=== PATIENT | male | born 1975 | race Caucasian/White ===

== ENCOUNTER 2024-12-08 11:24 | Outpatient (AMB) | payer BC, SELFPAY ==
--- NOTE | 2024-12-08 11:27 | A.OFFPC_ITS ---
Vital Signs 12/08/24 11:33 12/08/24 12:16 Height 5 ft 10 in Weight 229 lb 6 oz BMI 32.9 BP 180/93 H 160/84 H Blood Pressure Location Rt brachial Rt brachial Position Sitting Sitting Respiration 16 Pulse 87 Pulse Source Pulse Oximeter Temp 97.6 F Temp Source Oral Pulse Oximetry (%) 100 Oxygen Delivery Method Room Air Intake Visit Reasons: CPE? (need to change pcp) Intake Note: patient here for new patient visit/ CPE [employer] Required: No Allergies Penicillins Allergy (Intermediate, Verified 12/08/24 12:01) Rash Medication List - [facility] Known Home Meds Tobacco use date assessed: 12/08/24 Dental Screening Dental Screen Date: 12/08/24 Did you have a dental visit in the last 12 months?: Yes Did you have a dental problem in the last 6 months where you did not have access to dental care?: No Was dental information given to patient?: Patient has dentist HPI HPI Comments History of Present Illness Details Félix 49 y/o M with former smoker, current zakia otine vaper, HLD, elevated IOP , fhx co hawa ca (dad) s/p knee surgery R Fhx: Mom htn hld, dad htn hld colon ca (81) Social with children; works in the alcohol industry Health Maintenance Carlos has never had one, referred to GI at [facility] PSA Tdap 2022 Flu 12/08/24 Specialists GI Optho glasses/contacts, last exam June 2024 Suki has appt in 6 mo for elevated IOP in one eye History of Present Illness The patient is a 49-year-old male presenting to [facility]. [place] - records rec'd and reviewed, no consistent medical care in about 10 years Obesity: - BMI: 32.9 Former Tobacco Use Disorder: - Quit smoking 25 years ago. - Current nicotine vape usage. Hyperlipidemia: - No medication currently taken. - Maternal family history. Elevated Intraocular Pressure: - History of elevated pressure in eye. Family History of Hypertension: - Maternal family noted. Family History of Colorectal Cancer: - Father's positive history, diagnosed a t age 81. Lesion on Back: - Present, reportedly increasing in size . Elevated BP w/o DX - Blood pressure noted at 162/84 on repe at; Denies complaints. Admits white coat. Review of Systems - Eyes: Reports elevated intraocular pre ssure, otherwise denies current visual disturbances. - Cardiovascular: Denies chest pain; rep orts elevated blood pressure. - Dermatological: Reports lesion on back ; denies any acute changes. - Gastrointestinal: Denies any current g astrointestinal issues; family history noted. - Respiratory: Denies respiratory sympto ms. - Neurological: Denies headaches or dizz iness. - Musculoskeletal: Reports no issues. Physical Exam General: Well developed, well nourished, in no acute distress. Appears stated age. Head: Normocephalic, atraumatic. Eyes: Pupils are equal, round and reactive to light and accommodation. Conjunctivae are clear. Vision grossly normal. Lungs: Clear to auscultation bilaterally. No rales, rhonchi or wheeze noted. Good air flow in all muñoz. Heart: Regular rate and rhythm. No murmurs, click, rubs or gallops are noted. Musculoskeletal: Joints are nontender, without swelling, redness, or effusions. Pulses: Peripheral pulses are equal and palpable bilaterally. Extremities: No clubbing, cyanosis nor edema is noted. Skin: 2 raised brown moles to back Psych: Mood and affect appropriate. Patient reports feeling anxious during visits. Results Pending Discussion Notes The patient and I discussed his history of obesity, former tobacco use, hyperlipidemia, family history of cancer and hypertension, and other relevant health issues. For hypertension, I discussed the need for close monitoring and potential interventions to manage his blood pressure effectively. The patient is aware of his elevated intraocular pressure, and we will continue regular ophthalmic check-ups. I noted the concern with the back lesion and emphasized the importance of dermatologic follow-up. We explored the options for colorectal cancer screening, including both Cologuard and colonoscopy. Changes in lifestyle and dietary habits were stressed due to family history and personal health. We agreed to initiate several referrals and screenings, and the patient consented to a flu shot today. Patient was given time to ask questions. All questions were answered to their satisfaction. Assessment and Plan 1. Obesity - Lifestyle and diet counseling. 2. Former Tobacco Use Disorder - Advise on vaping cessation. 3. Hyperlipidemia - Order lipid panel. 4. Flu vaccine admin 5. Elevated Intraocular Pressure - Monitor with regular exams. 6. Family History of Colorectal Cancer - Colonoscopy arranged. 7 Lesion on Back - Assess by dermatology. 8. Elevated BP - Blood pressure monitoring. Patient Instructions - Follow a low-calorie diet and exercise regularly. - Avoid using nicotine products; conside r cessation aids if needed. - Contact cooker cleaner for follow-up about intraocular pressure. - See a special services supervisor about the lesion o n your back. - Schedule and attend the colonoscopy. - Return for a blood pressure check in t weeks. - Get the flu shot before leaving today. Consent Patient was informed and verbally consented to the use of an ambient scribe for clinic note documentation during this visit. Total time spent caring for the patient today was 45 minutes. This includes time spent before the visit reviewing the chart, time spent during the visit, and time spent after the visit on documentation, reviewing laboratory results, diagnostic imaging, medications, performing a medically necessary evaluation, counseling on diagnoses, care coordination, ordering appropriate tests, ordering appropriate medications, review of tests performed by other providers, reporting test results with the patient, communication with other healthcare providers. PFSH Medical History (Updated 12/08/24 @ 12:27 by Shannon Gonzalez [facility]) Eczema Surgical History (Updated 12/08/24 @ 11:41 by LISA Kate) History of right knee surgery Family History (Updated 12/08/24 @ 11:39 by LISA Kate) Brother FH: mental illness Mother High blood pressure High cholesterol Father High blood pressure High cholesterol Colon cancer Social History (Updated 12/08/24 @ 11:32 by LISA Kate) Housing: House Patient Tobacco Use Status: Never used Tobacco e-Cigarette/Vaping Use: Currently Using Second Hand Smoke Exposure: Yes Use of substances other than those prescribed or required for medical reasons: No service: No Current occupational status: employed Current occupation: alcohol fleet sales associate Current occupational exposures/hazards: No Cognitive needs: No Hearing needs: No Vision needs: Yes Questionnaire PHQ-9 Over the last 2 weeks, how often have you been bothered by any of the following problems? 1. Little interest or pleasure in doing things: not at all 2. Feeling down, depressed, or hopeless: not at all 3. Trouble falling or staying asleep, or sleeping too much: not at all 4. Feeling tired or having little energy: not at all 5. Poor appetite or overeating: not at all 6. Feeling bad about yourself - or that you are a failure or have let yourself or your family down: not at all 7. Trouble concentrating on things, such as reading the newspaper or watching television: not at all 8. Moving or speaking so slowly that other people could have noticed. Or the opposite - being so fidgety or restless that you have been moving around a lot more than usual: not at all 9. Thoughts that you would be better off or of hurting yourself in some way: not at all Total score: 0 Depression Screening Interpretation: Negative Depression Screening Done: Yes 17103 - PHQ-9 Billing: Yes Source: Developed by Drs. Doe Santiago, Yaz Kaur, Gordon Bergman and colleagues, with an educational antione from [employer]. Thrive Questionnaire Date Thrive assessed: 12/08/24 I am a: Patient What is your living situation today?: I have a steady place to live Within the past 12 months, did the food you bought not last and you didn't have the money to get more?: Never true Within the past 12 months, did you worry whether your food would run out before you got money to buy more?: Never true Do you have trouble paying for medicines?: No Do you have trouble getting transportation to medical appointments?: No Do you have trouble paying your heating and electricity bill?: No Do you have trouble taking care of your child, family member or friend?: No Do you have trouble with day-to-day activities such as bathing, preparing meals, shopping, managing finances, etc.?: No Are you currently unemployed and looking for a job?: No Are you interested in more education?: No Please select the resources that you would like help with: None Currently or been in a relationship where the following occur: No concerns reported THRIVE Score: 0 AUDIT C Alcohol Use Questionnaire (AUDIT-C) 1. How often do you have a drink containing alcohol?: 4 or more times a week 2. How many drinks containing alcohol do you have on a typical day when you are drinking?: 3 or 4 3. How often do you have six or more drinks on one occasion?: Monthly Total Score: 7 Score Reviewed/Action Taken: Yes ELEAZAR-7 AMB Questionnaire ELEAZAR-7 Date ELEAZAR - 7 assessed: 12/08/24 Feeling nervous, anxious, or on edge: 0 = Not at all Not being able to stop or control worryin = Not at all Worrying too much about different things: 0 = Not at all Trouble relaxin = Not at all Being so restless that it is hard to sit still: 0 = Not at all Becoming easily annoyed or irritable: 0 = Not at all Feeling afraid as if something awful might happen: 0 = Not at all Total ELEAZAR-7 score (0-4 normal; 5-9 mild; 10-14 moderate; 15-21 severe): 0 Source: Developed by Drs. Doe Santiago, Yaz Kaur, Gordon Bergman and colleagues, with an educational antione from [employer]. ELEAZAR-7 Assessment Billing ELEAZAR-7 Assessment Tool: ELEAZAR-7 Assessment 41913 Physical exam (Primary Care) Vital Signs: Last Vital Signs Temp 97.6 F 12/08/24 11:33 Pulse 87 12/08/24 11:33 Resp 16 12/08/24 11:33 BP 180/93 H 12/08/24 11:33 Pulse Ox 100 12/08/24 11:33 Oxygen Delivery Method Room Air 12/08/24 11:33 BMI result Body Mass Index 32.9 BMI Assessment/Plan discussion: High BMI High, discussed plan: lifestyle Tobacco/Smoking Status: Tobacco use Status Tobacco use date assessed 12/08/24 12/08/24 11:33 Patient Tobacco Use Status Never used Tobacco 12/08/24 11:33 e-Cigarette/Vaping Use Currently Using 12/08/24 11:33 PHQ-9: PHQ-9 Score PHQ-9: Total score 0 12/08/24 11:33 Depression Screening Interpretation: Negative Thrive Assessment: Date of Thrive Assessment Date Thrive assessed 12/08/24 12/08/24 11:33 Currently or been in a relationship where the following occur: No concerns reported Coding Level of Care Code New Pt Level 4 (21743) Complex EM visit Add On G2211 Diagnoses Encounter to establish care Z76.89 Mixed hyperlipidemia E78.2 Hyperlipidemia type: mixed hyperlipidemia Obesity (BMI 30-39.9) E66.9 Influenza vaccination administered at current visit Z23 Skin cancer screening Z12.83 Atypical mole D22.9 Elevated BP without diagnosis of hypertension R03.0 Nicotine vapor product user Z72.0 Intraocular pressure increase H40.059 Additional Codes ELEAZAR-7 Assessment Billing - ELEAZAR-7 Assessment Tool: ELEAZAR-7 Assessment 36963 ([id number]) PHQ-9 - 66341 - PHQ-9 Billing: Yes ([id number]) Assessment & Plan Assessment & Plan (1) Encounter to establish care: Code(s): Z76.89 - Persons encountering health services in other specified circumstances (2) HLD (hyperlipidemia): Code(s): E78.5 - Hyperlipidemia, unspecified Category: Medical Qualifiers: Hyperlipidemia type: mixed hyperlipidemia Qualified Code(s): E78.2 - Mixed hyperlipidemia (3) Obesity (BMI 30-39.9): Code(s): E66.9 - Obesity, unspecified Category: Medical (4) Influenza vaccination administered at current visit: Onset Date: ~12/08/24 Code(s): Z23 - Encounter for immunization Category: Medical (5) Skin cancer screening: Code(s): Z12.83 - Encounter for screening for malignant neoplasm of skin Category: Medical (6) Atypical mole: Code(s): D22.9 - Melanocytic nevi, unspecified Category: Medical (7) Elevated BP without diagnosis of hypertension: Code(s): R03.0 - Elevated blood-pressure reading, without diagnosis of hypertension Category: Medical (8) Nicotine vapor product user: Code(s): Z72.0 - Tobacco use Category: Social Hx (9) Intraocular pressure increase: Code(s): H40.059 - Ocular hypertension, unspecified eye Category: Medical Plan . Orders: Orders Complete Blood Count no Diff Today E78.5 - Hyperlipidemia, unspecified, Z00.00 - Encounter for general adult medical examination without abnormal findings Comprehensive Met. Panel Today E78.5 - Hyperlipidemia, unspecified, Z00.00 - Encounter for general adult medical examination without abnormal findings Hemoglobin A1c Today E78.5 - Hyperlipidemia, unspecified, Z00.00 - Encounter for general adult medical examination without abnormal findings TSH reflex Free T4 Today E78.5 - Hyperlipidemia, unspecified, Z00.00 - Encounter for general adult medical examination without abnormal findings Prostate Specific Antigen Scr Today E78.5 - Hyperlipidemia, unspecified, Z00.00 - Encounter for general adult medical examination without abnormal findings Vitamin B12 and Folate Today E78.5 - Hyperlipidemia, unspecified, Z00.00 - Encounter for general adult medical examination without abnormal findings Lipid Panel Today E78.5 - Hyperlipidemia, unspecified, Z00.00 - Encounter for general adult medical examination without abnormal findings Microalbumin, Random (w Creat) Today E78.5 - Hyperlipidemia, unspecified, Z00.00 - Encounter for general adult medical examination without abnormal findings Vitamin D 25-OH Total Today E78.5 - Hyperlipidemia, unspecified, Z00.00 - Encounter for general adult medical examination without abnormal findings Referrals Optometry Referral H53.8 - Other visual disturbances Gastroenterology Referral Z12.11 - Encounter for screening for malignant neoplasm of colon Dermatology Referral D22.9 - Melanocytic nevi, unspecified, Z12.83 - Encounter for screening for malignant neoplasm of skin Patient Instructions: Walk-In Care (Urgent Care): We Make it Easy Walk-in for urgent medical issues such as: ? Seasonal Allergies ? Insect Bites ? Cough ? Diarrhea ? Acute Asthma Attacks ? Back, Knee or Joint Pain ? Ear Infection ? Fever without a Rash ? Headaches ? Nausea ? [place] [facility], Rash or Skin Irritation ? Sore Throat ? Sports Physicals ? Vomiting Most insurances are accepted. Patients do not need to be part of the [facility] to seek care at the walk-in clinic. Locations [address] [place] [address] Open Thursday through Thursday 8am-5pm *Hours may vary due to staffing availability. To confirm Walk-In Care hours please call. [facility] , [place] [address] ? [phone] [facility] Walk-In Care in [place] provides services to ages 18 and over. Open Thursday-Thursday: 7 a.m. to 5 p.m. and Thursday: 9 a.m. to 3 p.m.* *Hours may vary due to staffing availability. To confirm Walk-In Care hours in [place], please call [phone]. [address] [place] [address] ? [phone] [facility] Walk-In Care in [place] provides services to ages 12 and over. Open Thursday-Thursday: 8 a.m. to 5 p.m. Hours may vary due to staffing availability. To confirm Walk-In Care hours in [place], please call [phone]. LABORATORY SERVICES: [facility] Lab ? Primary Location [address] [facility] Thursday through Thursday 6:00 AM ? 5:00 PM Thursday 7:00 AM ? 11:00 AM* [phone] The [facility] Lab is centrally located near the front entrance of the [facility] for easy outpatient access. Convenient parking is provided for outpatients. *Hours may vary due to staffing availability. To confirm Laboratory hours for any location, please call [phone]. Offsite Location For your convenience, we offer offsite laboratory draw stations at the following locations: [address] [place] [address] ? [facility] [address], [address] Thursday through Thursday 7:30 AM ? 1:00 PM* [phone] *Hours may vary due to staffing availability. To confirm Laboratory hours for any location, please call [phone]. [place] ? [address] Thursday through Thursday 6:00 AM ? 3:30 PM* Thursday 6:30 AM ? 3 PM* [phone] *Hours may vary due to staffing availability. To confirm Laboratory hours for any location, please call [phone] [place] [address] Thursday through Thursday 7:30 AM ? 4:00 PM* [phone] *Hours may vary due to staffing availability. To confirm Laboratory hours for any location, please call [phone] [place] [address] Thursday through 9:00 AM ? 4:00 PM* *Hours may vary due to staffing availability. To confirm Laboratory hours for any location, please call [phone]. Appointments are not necessary. Walk-ins are welcome. Like all the departments throughout the [facility], our Lab undergoes frequent reviews to ensure the quality and accuracy of test results, and our staff takes special pride in its status as a nationally accredited facility. Patient Portal: [facility] ONE PATIENT. ONE RECORD. BETTER CARE. [facility] has a fully integrated, cutting- edge mobile electronic health information system that has revolutionized the way we care for our patients and manage our organization. This system improves communication and coordination enabling us to provide safe, higher-quality care, and an overall positive experience for staff and patients. Our first priority, as always, is to deliver the highest quality care possible. The system is running in the background supporting that priority. This portal is for all [facility] services and practices. If you are experiencing any technical difficulties with enrolling or logging into the Patient Portal please complete the [facility] Patient Portal Technical Support Form. [facility] now offers a new secure on-line interactive tool for patients to review their health information ? ?Patient Portal. This interactive web portal will enable patients and their families to take an active role in their care by providing easy, secure access to their health information via the internet. The Patient Portal provides patients with instant access to their health information, including laboratory results, medications, allergies, demographic information, visit history, and more. In addition to managing their own care, parents and health care proxies with authorized consent will appreciate the ability to access the records of those individuals for whom they provide care. Please note: if you wish to gain access (Proxy) to another patient?s portal, you will be required to come to the Medical Records Department in person at [facility]. Both the patient giving proxy access and the proxy will need to provide photo identification and complete the appropriate authorization. The Patient Portal also allows track their appointments online. The [facility] Patient Portal also saves patients time by allowing them to submit updates to their demographic and contact information prior to their visits. Portal email notifications will also alert patients to any new activity on their portal, such as test results and new appointments. In order to initially enroll in the [facility] Patient Portal, you will need to enter some required information including the following: * your [facility] Medical Record number * your personal home email address * name * date of Please note: In order to enroll in the [facility] Patient Portal, we need to have your email address on file in your electronic medical record. ?The email address needs to be specific for one person (yourself) in order for your Portal enrollment to be successful. ?You can update your email address in person with our Registration staff when you are registering for a hospital visit. ?Otherwise, you will need to come to the Health Information Management (Medical Records) Department at [facility]. ?We are open from Thursday ? Thursday from 7:30 a.m. ? 4:30 p.m. ?You will be required to present a photo id. Once you have successfully enrolled in the Patient Portal, you will receive a one-time user id and password for the Portal, sent to your email address. ?This will allow you to log into the Patient Portal within 99 hrs and reset your own logon id and password, and define personal security questions. ?Once your permanent login and password have been set, you can log into the [facility] Patient Portal at any time via the blue button above or from the Portal Logon button on any page of the [facility] website. [facility] encourage all of our patients to enroll in Patient Portal as it presents a valuable opportunity for patients and their families to actively participate in their care and stay healthy Welcome to [facility]. ?We look forward to working with you.
[2024-12-08 11:33] VITALS: BP 180/93; PULSE 87; RESP 16; TEMP 36.4; O2SAT 100; BMI 32.9
[2024-12-08 12:16] VITALS: BP 160/84
--- OUTSIDE RECORDS SUMMARY | 2024-12-08 14:33 | XMS_ITS ---
Author Name [facility] Organization Unknown Care Team Organization Name Specialty Phone Email Start Date End Da te [facility] Andre Aguirre Primary [facility] 12/24/2021 10/05/2023
--- OUTSIDE RECORDS SUMMARY | 2024-12-08 14:33 | XMS_ITS | Clinical Summary ---
Author Organization [facility] Address [address] [place] [address] Care Team Providers Care Supervisor General Name Role Phone Physician, No Pcp Primary Care Provider Unavaila ble Allergies Active Allergy Reactions Criticality Noted Date Comments Benzoic Acid Other 07/31/2011 Caffeine [Benzoic Npt-ggjnawyw-kv&c Blue #1] Causes irregular heartbeat Penicillins Dermatitis,Rash,Other 07/31/2011 Immunizations Immunization Administration Dates Next Due Influenza trivalent, with pr eservative (Fluzone; Afluria) 6mo and older 01/08/2015 Moderna SARS-CoV-2 COVID-19, mRNA, LNP-S, preservative free 11/04/2021 Tdap Tetanus diptheria acell ular pertussis (Boostrix; Adacel) 7yo and older 09/23/2010 Surgical History Surgery Date Site/Laterality Comments KNEE ARTHROSCOPY 1989 PROCEDURE: [place] ARTHROSCOPY AID [place] SPINE&/FX KNEE W/O FIXJ Medical History Medical History Date Comments Tobacco use DX:Tobacco use Family History Medical History Relation Name Comments Hyperlipidemia Father Hypertension Father Hyperlipidemia Mother Hypertension Mother Relation Name Status Comments Father Mother Social History Tobacco Use Types Packs/Day Years Used Date Smoking Tobacco: Light Smoker Alcohol Use Standard Drinks/Week Comments Yes 0 (1 standard drink = 0.6 oz pur e alcohol) Sex and Gender Information Value Date Recorded Sex Assigned at Not on file Legal Sex Male 10:30 PM EST Gender Identity Not on file Sexual Orientation Not on file Obstetrics History Plan of Treatment Health Maintenance Due Date Last Done Comments Colorectal Cancer Screening: Colonoscopy 1975 Hepatitis B Vaccines (1 of 3 - 19+ 3-dose series) 05/01/1994 Pneumococcal Vaccine: Pediat rics (0 to 5 Years) and At-Risk Patients (6 to 49 Years) (1 of 2 - PCV) 05/01/1994 DTaP,Tdap,and Td Vaccines (2 - Td or Tdap) 09/23/2020 09/23/2010 Cholesterol Screening (Lipid Panel) 12/11/2023 01/31/2015 HIV Screening 12/11/2023 Hepatitis C Screening 12/11/2023 Social Influencers of Health Screening 12/11/2023 Depression Screening 02/17/2024 COVID-19 Vaccine (2 - 2024-2 6 season) 2024 11/04/2021 Influenza Vaccine (#1) 2024 01/08/2015 RSV Immunization Adult Patie nts (1 - 1-dose 75+ series) 05/01/2050 HIB Vaccines Aged Out No longer eligi ble based on patient's age to complete this topic HPV Vaccines Aged Out No longer eligi ble based on patient's age to complete this topic Hepatitis A Vaccines Aged Out No long er eligible based on patient's age to complete this topic IPV Vaccines Aged Out No longer eligi ble based on patient's age to complete this topic MMR Vaccines Aged Out No longer eligi ble based on patient's age to complete this topic Meningococcal ACWY Vaccine Aged Out N o longer eligible based on patient's age to complete this topic Meningococcal B Vaccine Aged Out No l onger eligible based on patient's age to complete this topic RSV Immunization Patients Un maren 20 months Aged Out No longer eligible b ased on patient's age to complete this topic Varicella Vaccines Aged Out No longer eligible based on patient's age to complete this topic Procedures Procedure Name Priority Date/Time Associated Diagnosis Comments LIPID PANEL Routine 01/31/2015 from Last 3 Months or Most Recently Relevant to Health Maintenance Results * (ABNORMAL) Lipid panel (01/31/2015) LDL/HDL Ratio 5(A) 0 - 4 Triglycerides 127 0 - 150 mg/dL Cholesterol 316(A) 0 - 200 mg/dL HDL 62 >=40 mg/dL LDL Cholesterol 229(A) 0 - 100 mg/dL Blood Venous blood specimen / Unknown us Historical Provider LAB BLOOD ORDERABLES Shirley l Result from Last 3 Months or Most Recently Relevant to Health Maintenance Care Teams Supervisor General Relationship Specialty Start Date End Date Physician, No Pcp PCP - General 01/18/24
== END 2024-12-08 12:46 | disposition home or self-care (01) ==
LOC: HO.HMCFM 11:25
PROVIDERS: PCP Nurse Practitioner Family; Visit Provider Nurse Practitioner Family
DX: E78.2 Mixed hyperlipidemia (principal); R03.0 Elevated blood-pressure reading, without diagnosis of hypertension; E66.9 Obesity, unspecified; Z68.32 Body mass index [BMI] 32.0-32.9, adult; D22.9 Melanocytic nevi, unspecified; Z23 Encounter for immunization; Z12.83 Encounter for screening for malignant neoplasm of skin; Z72.0 Tobacco use

== ENCOUNTER → 2024-12-08 11:24 | Outpatient (BNVA) | payer BC, SELFPAY | PROVIDERS: PCP Nurse Practitioner Family; Visit Provider Nurse Practitioner Family | DX: I10 Essential (primary) hypertension (principal); E66.9 Obesity, unspecified; E78.5 Hyperlipidemia, unspecified; E78.2 Mixed hyperlipidemia; D22.9 Melanocytic nevi, unspecified; R03.0 Elevated blood-pressure reading, without diagnosis of hypertension; H40.059 Ocular hypertension, unspecified eye; F17.290 Nicotine dependence, other tobacco product, uncomplicated; Z76.89 Persons encountering health services in other specified circumstances; Z68.32 Body mass index [BMI] 32.0-32.9, adult; Z23 Encounter for immunization | CPT/HCPCS: 90471; 90656; 96127 ==

== ENCOUNTER 2025-01-16 11:13 | Outpatient (REF) | payer BC, SELFPAY ==
[2025-01-16 14:31] LABS: Hematocrit 45.6 % (42.0-52.0); Hemoglobin 16.1 g/dl (14.0-18.0); Mean Corpuscular HGB Conc 35.3 g/dl (31.0-36.0); Mean Corpuscular Hemoglobin 31.3 pg (27.0-33.0); Mean Corpuscular Volume 88.5 fL (80.0-98.0); NRBC Abs Auto 0.000 X10*3/uL (0.0-0.012); NRBC Pct Auto 0.0 /100WBC (0.0-0.2); Platelet Count 211 X10*3/uL (160-400); Red Blood Count 5.15 X10*6/uL (4.60-5.80); White Blood Count 5.5 X10*3/uL (4.8-10.8)
--- OUTSIDE RECORDS SUMMARY | 2025-01-16 14:43 | XMS_ITS | Clinical Summary ---
Author Organization [facility] Address [address] [place] [address] Care Team Providers Care Physical Therapy Manager Name Role Phone Physician, No Pcp Primary Care Provider Unavaila ble Allergies Active Allergy Reactions Criticality Noted Date Comments Benzoic Acid Other 07/31/2011 Caffeine [Benzoic Bwa-tipqggru-cz&c Blue #1] Causes irregular heartbeat Penicillins Dermatitis,Rash,Other 07/31/2011 Immunizations Immunization Administration Dates Next Due Influenza trivalent, with pr eservative (Fluzone; Afluria) 6mo and older 01/08/2015 Moderna SARS-CoV-2 COVID-19, mRNA, LNP-S, preservative free 11/04/2021 Tdap Tetanus diptheria acell ular pertussis (Boostrix; Adacel) 7yo and older 09/23/2010 Surgical History Surgery Date Site/Laterality Comments KNEE ARTHROSCOPY 1989 PROCEDURE: [place] ARTHROSCOPY AID [place] SPINE&/FX KNEE W/O FIXJ [...] Recently Relevant to Health Maintenance Care Teams Physical Therapy Manager Relationship Specialty Start Date End Date Physician, No Pcp PCP - General 01/18/24
[2025-01-16 15:16] LABS: Folate 8.6 ng/mL (> or = 4.0); Vitamin B12 401 pg/mL (200-900)
[2025-01-16 15:33] LABS: Alanine Aminotransferase 56 U/L (0-40); Albumin Level 4.7 g/dL (3.5-5.0); Alkaline Phosphatase 89 U/L (39-117); Anion Gap 11 (12-20); Aspartate Amino Transferase 35 U/L (5-37); Blood Urea Nitrogen 12 mg/dL (9-16); Calcium 9.8 mg/dL (8.4-10.2); Carbon Dioxide 26 mmol/L (22-29); Chloride 106 mmol/L (96-108); Cholesterol 303 mg/dL (<200); Estimated Glomerular Filt Rate > 60; HDL Cholesterol 61 mg/dL (>40); Potassium 4.0 mmol/L (3.3-5.1); Sodium 139 mmol/L (135-145); Total Protein 7.6 g/dL (6.5-8.0); Triglycerides 93 mg/dL (<150)
== END 2025-01-16 11:14 | disposition home or self-care (01) ==
LOC: HO.WFDLDS 11:13
PROVIDERS: Visit Provider Nurse Practitioner Family
DX: Z00.00 Encounter for general adult medical examination without abnormal findings (principal); E78.5 Hyperlipidemia, unspecified; Z12.5 Encounter for screening for malignant neoplasm of prostate; Z13.1 Encounter for screening for diabetes mellitus; Z13.21 Encounter for screening for nutritional disorder
CPT/HCPCS: 36415; 80053; 80061; 82043; 82306; 82570; 82607; 82746; 83036; 84153; 84443; 85027

== ENCOUNTER 2025-01-31 11:21 | Outpatient (AMB) | payer BC, SELFPAY ==
--- NOTE | 2025-01-31 11:25 | MHC.PC.OV ---
Vital Signs 01/31/25 11:28 01/31/25 11:51 Height 5 ft 10 in Weight 225 lb 8 oz BMI 32.4 BP 190/90 H 150/80 H Blood Pressure Location Rt brachial Lt brachial Position Sitting Sitting Respiration 14 Pulse 120 H 98 Pulse Source Pulse Oximeter Auscultation Temp 97.1 F Temp Source Oral Pulse Oximetry (%) 99 Oxygen Delivery Method Room Air Intake Visit Reasons: 2 weeks 30 min fu HTN/Labs Intake Note: Follow up on htn and review labs. [employer] Required: No Allergies Penicillins Allergy (Intermediate, Verified 01/31/25 11:25) Rash Medication List - Last Reconciled 01/31/25 by ALEJANDRA Huff No Known Home Meds Tobacco use date assessed: 01/31/25 Dental Screening Dental Screen Date: 01/31/25 Did you have a dental visit in the last 12 months?: Yes Did you have a dental problem in the last 6 months where you did not have access to dental care?: No Was dental information given to patient?: Patient has dentist HPI HPI Comments History of Present Illness Details Félix 49 y/o M with former smoker, current nicotine vaper, HLD, elevated IOP , fhx colon ca (dad), HTN s/p knee surgery R Fhx: Mom htn hld, dad htn hld colon ca (81) Social with children; works in the alcohol industry Health Maintenance Carlos has never had one, [place] [facility] [place] WNL Tdap 2022 Flu 12/08/24 Specialists Derm GI Optho glasses/contacts, last exam June 2024 Suki has appt in 6 mo for elevated IOP in one eye History of Present Illness The patient is a 49 year old male presenting for a blood pressure check and to review lab results. Essential Hypertension: - The patient has never been on medication for blood pressure previously. BP remains elevated today; denies neuro or cardiac sx. No home monitoring Hypercholesterolemia: - The patient notes a family history of high cholesterol, with both his parents starting to have issues around his current age. - He has been working on lifestyle modifications, including walking the dogs and trying to eat better, as his is diabetic. - His is currently taking cholesterol medication. Interrupted Sleep: - The patient reports a lifelong pattern of sleep issues. - He used to have difficulty falling asleep but would then sleep well. - Currently, he falls asleep quickly but wakes up after about 3-4 hours. - He reports his mind starts racing about what he needs to do the next day. - This sleep interruption is related to work and life stress and does not typically occur on weekends. - He denies waking up in a sweat or with his heart pounding, and he does eventually fall back asleep. Referral management: - A referral was made to dermatology, but the patient has not yet been able to schedule an appointment. - The patient forgot about the colonoscopy referral and has not received a call to schedule it. - A referral to opt was processed, and the patient has an appointment scheduled for the beginning of February. Review of Systems - Constitutional: Denies fever during the visit. Reports recent history of fever up to 104 F with COVID-19 infection. - Cardiovascular: Denies chest pain or palpitations. - GI: Denies right upper quadrant pain. - Neurological: Reports interrupted sleep. Denies headaches. Physical Exam General: Well developed, well nourished, in no acute distress. Appears stated age. Head: Normocephalic, atraumatic. Eyes: Pupils are equal, round and reactive to light and accommodation. Conjunctivae are clear. Vision grossly normal. Lungs: Clear to auscultation bilaterally. No rales, rhonchi or wheeze noted. Good air flow in all muñoz. Heart: Regular rate and rhythm. No murmurs, click, rubs or gallops are noted. Musculoskeletal: Joints are nontender, without swelling, redness, or effusions. Pulses: Peripheral pulses are equal and palpable bilaterally. Extremities: No clubbing, cyanosis nor edema is noted. Psych: Mood and affect appropriate. Results see below Medical Decision Making The patient is a 49-year-old male here for a follow-up on blood pressure and labs. His initial blood pressure was significantly elevated at 190/90 mmHg, but improved to 150/80 mmHg upon recheck. Given his persistently elevated readings and lack of prior treatment, initiation of antihypertensive therapy is warranted. The patient denies headaches and reports his sleep is interrupted by stress rather than a primary sleep disorder, so a straightforward blood pressure medication is appropriate. Lisinopril 10 mg daily is a suitable first-line agent. His lab results reveal significant hypercholesterolemia with a total cholesterol of 303 mg/dL and an LDL of 224 mg/dL. While his HDL is favorable at 61 mg/dL and he is making lifestyle efforts, these numbers, combined with his family history, necessitate pharmacologic intervention. The patient is agreeable to starting medication. Atorvastatin 20 mg daily is an effective and well-tolerated option to lower his LDL. The slight elevation in his ALT liver enzyme will be monitored, as this can be associated with high cholesterol. Referrals to dermatology and gastroenterology for a colonoscopy are still pending and will be followed up on. The plan is to start lisinopril and atorvastatin and recheck his blood pressure in 4-6 weeks to assess for efficacy and tolerance. Cholesterol levels will be rechecked in 3-6 months. Plan 1. Essential Hypertension - Initial blood pressure was 190/90 mmHg, with a subsequent reading of 150/80 mmHg. - Start lisinopril 10 mg once daily. - Follow-up in 4-6 weeks for a blood pressure recheck. - Discussed common side effect of a dry cough and the rare but serious side effect of angioedema. 2. Hypercholesterolemia - Lab results showed total cholesterol of 303 mg/dL, LDL of 224 mg/dL, and HDL of 61 mg/dL. - Patient has a family history and is agreeable to starting medication. - Start atorvastatin 20 mg once daily. - Discussed potential side effect of muscle aches and pains. - Recheck cholesterol labs in 3-6 months. 3. Referral Management - Patient to continue trying to schedule an appointment with dermatology. - Patient will follow up on scheduling his colonoscopy. Patient Instructions - Start taking atorvastatin 20 mg once per day for your high cholesterol. You can take this at the same time as your other new medication. - The prescription may say to take it at bedtime, but you can take it at any time, as long as you take it once every day. - Let us know if you develop any intolerable muscle aches or pains, as this can be a side effect. There are other options if this occurs. - We will check your cholesterol with a blood test in 3 to 6 months. - Start taking lisinopril 10 mg once per day for your high blood pressure. - A common side effect of lisinopril is a dry, annoying cough. If this happens to you, please contact the office as there is an alternative medication. - There is a very rare but serious side effect called angioedema, which is swelling of the mouth, eyes, or lips. If this happens, stop taking the medication immediately and contact me. - Both atorvastatin and lisinopril have been sent to the [facility] as a 90-day supply. - Please follow up on scheduling your appointment with dermatology and your referral for a colonoscopy. - Please return to the office on February 27 at 9:00 AM for a blood pressure recheck. Consent Informed consent was obtained from the patient for treatment with atorvastatin and lisinopril. The patient was counseled on the rationale, benefits, and common side effects for each medication. This included discussing the risk of a dry cough and the rare but life-threatening risk of angioedema with lisinopril, and the risk of muscle aches with atorvastatin. Alternatives were mentioned if side effects become intolerable. The patient acknowledged understanding and agreed to proceed with the treatment plan. Patient was informed and verbally consented to the use of an ambient scribe for clinic note documentation during this visit. Total time spent caring for the patient today was 30 minutes. This includes time spent before the visit reviewing the chart, time spent during the visit, and time spent after the visit on documentation, reviewing laboratory results, diagnostic imaging, medications, performing a medically necessary evaluation, counseling on diagnoses, care coordination, ordering appropriate tests, ordering appropriate medications, review of tests performed by other providers, reporting test results with the patient, communication with other healthcare providers. [facility] Medical History (Updated 01/31/25 @ 12:05 by Shannon Gonzalez [facility]) Eczema Surgical History (Updated 12/08/24 @ 11:41 by LISA Kate) History of right knee surgery Family History (Updated 12/08/24 @ 11:39 by LISA Kate) Brother FH: mental illness Mother High blood pressure High cholesterol Father High blood pressure High cholesterol Colon cancer Social History (Updated 12/08/24 @ 11:32 by LISA Kate) Housing: House Patient Tobacco Use Status: Never used Tobacco e-Cigarette/Vaping Use: Currently Using Second Hand Smoke Exposure: Yes service: No Current occupational status: employed Current occupation: alcohol sales department supervisor Current occupational exposures/hazards: No Cognitive needs: No Hearing needs: No Vision needs: Yes Questionnaire Thrive Questionnaire Date Thrive assessed: 12/07/24 I am a: Patient What is your living situation today?: I have a steady place to live Within the past 12 months, did the food you bought not last and you didn't have the money to get more?: Never true Within the past 12 months, did you worry whether your food would run out before you got money to buy more?: Never true Do you have trouble paying for medicines?: No Do you have trouble getting transportation to medical appointments?: No Do you have trouble paying your heating and electricity bill?: No Do you have trouble taking care of your child, family member or friend?: No Do you have trouble with day-to-day activities such as bathing, preparing meals, shopping, managing finances, etc.?: No Are you currently unemployed and looking for a job?: No Are you interested in more education?: No Please select the resources that you would like help with: None Currently or been in a relationship where the following occur: No concerns reported THRIVE Score: 0 AUDIT C Alcohol Use Questionnaire (AUDIT-C) 1. How often do you have a drink containing alcohol?: Monthly or less 2. How many drinks containing alcohol do you have on a typical day when you are drinking?: 1 or 2 3. How often do you have six or more drinks on one occasion?: Never Total Score: 1 ELEAZAR-7 AMB Questionnaire ELEAZAR-7 Date ELEAZAR - 7 assessed: 12/08/24 Source: Developed by Drs. Doe Santiago, Yaz Kaur, Gordon Bergman and colleagues, with an educational antione from [employer]. Physical exam (Primary Care) Vital Signs: Last Vital Signs Temp 97.1 F 01/31/25 11:28 Pulse 98 01/31/25 11:51 Resp 14 01/31/25 11:28 BP 150/80 H 01/31/25 11:51 Pulse Ox 99 01/31/25 11:28 Oxygen Delivery Method Room Air 01/31/25 11:28 BMI result Body Mass Index 32.4 Tobacco/Smoking Status: Tobacco use Status Tobacco use date assessed 01/31/25 01/31/25 11:29 Patient Tobacco Use Status Never used Tobacco 01/31/25 11:29 e-Cigarette/Vaping Use Currently Using 01/31/25 11:29 Thrive Assessment: Date of Thrive Assessment Date Thrive assessed 12/07/24 01/31/25 11:29 Currently or been in a relationship where the following occur: No concerns reported Results Reviewed Results Reviewed: Laboratory 01/16/25 Result Units Range Interpretation Provider Comments White Blood Count 5.5 X10*3/uL (4.8-10.8) Red Blood Count 5.15 X10*6/uL (4.60-5.80) Hemoglobin 16.1 g/dl (14.0-18.0) Hematocrit 45.6 % (42.0-52.0) Mean Corpuscular Volume 88.5 fL (80.0-98.0) Mean Corpuscular Hemoglobin 31.3 pg (27.0-33.0) Mean Corpuscular Hemoglobin Concent 35.3 g/dl (31.0-36.0) Red Cell Distribution Width 12.3 % (11.0-16.0) Platelet Count 211 X10*3/uL (160-400) Mean Platelet Volume 10.4 fL (9.4-12.4) Nucleated RBC Absolute Count (auto) 0.000 X10*3/uL (0.0-0.012) Nucleated Red Blood Cells % (auto) 0.0 /100WBC (0.0-0.2) Sodium Level 139 mmol/L (135-145) Potassium Level 4.0 mmol/L (3.3-5.1) Chloride Level 106 mmol/L (96-108) Carbon Dioxide Level 26 mmol/L (22-29) Anion Gap 11 (12-20) Low Blood Urea Nitrogen 12 mg/dL (9-16) Creatinine 1.03 mg/dL (0.5-1.4) Estimated Creatinine Clearance Calc Not Reportable Estimat Glomerular Filtration Rate > 60 Random Glucose 105 mg/dL (60-115) Estimated Average Glucose 108 mg/dL Hemoglobin A1c Percent 5.4 % (<6.0) Calcium Level 9.8 mg/dL (8.4-10.2) Total Bilirubin 0.4 mg/dL (0.0-1.0) Aspartate Amino Transf (AST/SGOT) 35 U/L (5-37) Alanine Aminotransferase (ALT/SGPT) 56 U/L (0-40) High Alkaline Phosphatase 89 U/L (39-117) Total Protein 7.6 g/dL (6.5-8.0) Albumin 4.7 g/dL (3.5-5.0) Triglycerides Level 93 mg/dL (<150) Cholesterol Level 303 mg/dL (<200) High LDL Cholesterol, Calculated 224 mg/dL (<100) High HDL Cholesterol 61 mg/dL (>40) Prostate Specific Antigen Screen 0.36 ng/mL (<0.05-4.0) Vitamin B12 Level 401 pg/mL (200-900) 25-Hydroxy Vitamin D Total 33.5 ng/mL (>30) Folate 8.6 ng/mL (> or = 4.0) Thyroid Stimulating Hormone (TSH) 2.30 uIU/mL (0.32-4.0) Urine Creatinine 29.29 mg/dL Urine Microalbumin < 5.0 mg/L Urine Microalbumin/Creatinine Ratio TNP Coding Level of Care Code Est Pt Level 4 (00101) Add On Problem Visit Only Diagnoses Primary hypertension I10 Hypertension type: primary hypertension Mixed hyperlipidemia E78.2 Hyperlipidemia type: mixed hyperlipidemia Elevated ALT measurement R74.01 Assessment & Plan Assessment & Plan (1) HTN (hypertension): Code(s): I10 - Essential (primary) hypertension Category: Medical Qualifiers: Hypertension type: primary hypertension Qualified Code(s): I10 - Essential (primary) hypertension (2) HLD (hyperlipidemia): Code(s): E78.5 - Hyperlipidemia, unspecified Category: Medical Qualifiers: Hyperlipidemia type: mixed hyperlipidemia Qualified Code(s): E78.2 - Mixed hyperlipidemia (3) Elevated ALT measurement: Code(s): R74.01 - Elevation of levels of liver transaminase levels Category: Medical Plan . Medications: New atorvastatin (Lipitor) 20 mg PO BEDTIME 90 tabs 2RF lisinopril 10 mg PO DAILY 90 tabs 0RF
[2025-01-31 11:28] VITALS: BP 190/90; PULSE 120; RESP 14; TEMP 36.2; O2SAT 99; BMI 32.4
[2025-01-31 11:51] VITALS: BP 150/80; PULSE 98
--- OUTSIDE RECORDS SUMMARY | 2025-01-31 15:03 | XMS_ITS | Clinical Summary ---
Author Organization [facility] [place] Address [address] [place] [address] Care Team Providers Care Child Development Teacher Name Role Phone Physician, No Pcp Primary Care Provider Unavaila ble Allergies Active Allergy Reactions Criticality Noted Date Comments Benzoic Acid Other 07/31/2011 Caffeine [Benzoic Mca-psawspld-iy&c Blue #1] Causes irregular heartbeat Penicillins Dermatitis,Rash,Other 07/31/2011 Immunizations Immunization Administration Dates Next Due Influenza trivalent, with pr eservative (Fluzone; Afluria) 6mo and older 01/08/2015 Moderna SARS-CoV-2 COVID-19, mRNA, LNP-S, preservative free 11/04/2021 Tdap Tetanus diptheria acell ular pertussis (Boostrix; Adacel) 7yo and older 09/23/2010 Surgical History Surgery Date Site/Laterality Comments KNEE ARTHROSCOPY 1989 PROCEDURE: [place] ARTHROSCOPY AID [place] SPINE&/FX KNEE W/O FIXJ [...] on file Sexual Orientation Not on file Plan of Treatment Health Maintenance Due Date [...] Recently Relevant to Health Maintenance Care Teams Child Development Teacher Relationship Specialty Start Date End Date Physician, No Pcp PCP - General 01/18/24
== END 2025-01-31 12:01 | disposition home or self-care (01) ==
LOC: HO.HMCFM 11:22
PROVIDERS: PCP Nurse Practitioner Family; Visit Provider Nurse Practitioner Family
DX: I10 Essential (primary) hypertension (principal); E78.2 Mixed hyperlipidemia; R74.01 Elevation of levels of liver transaminase levels